=== PATIENT | male | born 1930 | race Caucasian/White ===

== ENCOUNTER → 2017-05-13 | Outpatient (CLI) | payer MEDICARE, OTHER ==
[~2017-05-13] MED LIST: Brimonidine Tart5 ML BOTHEYES; LATANOPROST2.5 ML BOTHEYES
== END | disposition home or self-care (01) ==
LOC: PLD 07:31 → LAB SHORT 07:31
DX: D22.62 Melanocytic nevi of left upper limb, including shoulder (principal)
CPT/HCPCS: 88305

== ENCOUNTER 2017-11-19 10:41 | Emergency (ER) | payer MEDICARE, OTHER ==
[~2017-11-19] VITALS: Ht 175.3 cm; Wt 77.1 kg
[2017-11-19] MEDS ORDERED: Brimonidine Tart5 ML BOTHEYES (10:56)
[2017-11-19] MEDS ORDERED: LATANOPROST2.5 ML BOTHEYES (10:57)
== END 2017-11-19 12:10 | disposition home or self-care (01) ==
LOC: ER 10:41
DX: R07.81 Pleurodynia (principal); Z88.0 Allergy status to penicillin; Z88.8 Allergy status to other drugs, medicaments and biological substances; Z88.5 Allergy status to narcotic agent; Z91.010 Allergy to peanuts; Z87.891 Personal history of nicotine dependence; W01.0XXA Fall on same level from slipping, tripping and stumbling without subsequent striking against object, initial encounter
CPT/HCPCS: 71046; 99283-25

== ENCOUNTER 2018-06-10 08:53 | Emergency (ER) | payer MEDICARE, OTHER ==
[~2018-06-10] VITALS: Ht 177.8 cm; Wt 74.8 kg
[2018-06-10] MEDS ORDERED: Hair, Skin & N1 EACH (09:56)
[2018-06-22] MEDS ORDERED: Hair, Skin & N1 EACH PO (14:24)
[2018-06-22] MEDS ORDERED: COQ1050 MG PO (14:25)
[2018-06-22] MEDS ORDERED: BREWER S YEAST PO (14:26)
[2018-06-22] MEDS ORDERED: Cardiovid Plus1 EACH PO (14:26)
== END 2018-06-10 12:16 | disposition home or self-care (01) ==
LOC: ER 08:53
DX: K40.90 Unilateral inguinal hernia, without obstruction or gangrene, not specified as recurrent (principal); Z88.0 Allergy status to penicillin; Z88.8 Allergy status to other drugs, medicaments and biological substances; Z88.5 Allergy status to narcotic agent; Z91.010 Allergy to peanuts; Z87.891 Personal history of nicotine dependence
CPT/HCPCS: 76857; 99283-25

== ENCOUNTER 2018-06-24 08:56 | Day surgery (SDC) | payer MEDICARE, OTHER ==
[~2018-06-24] VITALS: Ht 167.6 cm; Wt 76.0 kg
[~2018-06-24 08:56] MED LIST changes: +BREWER S YEAST PO; +COQ1050 MG PO; +Cardiovid Plus1 EACH PO; +Hair, Skin & N1 EACH; +Hair, Skin & N1 EACH PO
[2018-06-24] MEDS ORDERED: POTASSIUM PO (09:28)
[2018-06-24] MEDS ORDERED: MAGNESIUM PO (09:28)
--- NOTE | 2018-06-24 09:31 | NUR ---
History, Chart, Medications and Allergies reviewed before start of procedure. Patient confirms NPO status and agrees with scheduled surgery. Patient reports completing Chlorhexadine shower X2 prior to admission to hospital. Lungs clear T/O to Auscultation. Patient States Post-Procedure ride home has been arranged with his .
--- NOTE | 2018-06-24 14:44 | NUR ---
ASSISTED TO SITTING/STANDING POSITION. USES WALKER. BURPS. C/O NAUSEA. GAGGING ENROUTE TO BR. NO EMESIS. STANDS AT TOILET, VOIDS SMALL AMOUNT. BACK TO [facility], SITS AT EDGE, DANGLES LEGS.
--- NOTE | 2018-06-24 14:53 | NUR ---
assumed care of patient from Jonathan MEI, GAVE ZOFRAN AT THIS TIME 2 MG IVP FOR NAUSEA. MEDICATION HAS NOT CROSSED OVER ONTO JUL. DRESSING CDI
--- NOTE | 2018-06-24 15:11 | NUR ---
reports nausea slightly better. continues to feel not ready for family at bedside continues to sit on side of bed iniatlly had belching and dry heaves has had none for a short while.
--- NOTE | 2018-06-24 15:20 | NUR ---
gave report to Suzan fernandes. patient continues to feel "off" and a little nausea. denies pain denies being cold. wants to sit on side of bed.
--- NOTE | 2018-06-24 15:44 | NUR ---
PT CONTINUED TO C/O SOME NAUSEA AND FEELING DIZZY. SPOKE WITH DR. JETT AND RECEIVED VERBAL ORDERS FOR ADDITIONAL NAUSEA MEDICATIONS. PT GIVEN ZOFRAN 4MG IV AND CONTINUES TO SIT ON EDGE OF BED. DISCUSS WITH PT THE IMPORTANCE OF USING HIS WALKING INSTEAD OF HIS WALKING STICK WHEN HE GETS HOME AND THAT HE IS GOING TO BE SLEEPY FOR A WHILE. PT VERBALIZED UNDERSTANDING. PT DOES NOT WANT FAMILY BACK TO ROOM YET BUT IS UPDATED ON PT CURRENT CONDITION
--- NOTE | 2018-06-24 15:54 | NUR ---
PT UP AND AMB TO BATHROOM USING A WALKER AND STAND BY ASSIST.
--- NOTE | 2018-06-24 16:19 | NUR ---
PT REPORTS THAT HE STILLS FEELS LIKE "I COULD THROW UP" BUT STATES HE DOESN'T HAVE ANYTHING IN HIS STOMACH. PT GIVEN COMPAZINE 10MG SLOW IV PUSH. SITTING IN CHAIR AT THE BEDSIDE.
--- NOTE | 2018-06-24 16:28 | NUR ---
REPOR TO RENATA RN TO ASSUME CARE OF PT AT THIS TIME. PT HAS EATEN SOME APPLE CAUSE AND APPEARS TO HAVE TOLERATED IT AT THIS TIME.
--- NOTE | 2018-06-24 16:46 | NUR ---
DAY SURGERY RN | REPORT FROM MARS WOLFE. PATIENT STATES NAUSEA DECLINING. DENIES PAIN. STATES THAT HE IS "READY TO GO HOME". TOLERATING PO FLUIDS AND FOOD. AT BEDSIDE, DISCHARGE INSTRUCTIONS GIVEN. PATIENT STEADY TO AMBULATION, USES WALKER FOR ASSIST. DICUSSED USING WALKER AT HOME. RX GIVEN TO SPOUSE.
--- NOTE | 2018-06-24 17:04 | NUR ---
"DAY SURGERY | PATIENT DISCHARGED PATIENT DISCHARGED TO HOME VIA WHEELCHAIR BY RAYO VARELA RN. VSS. A/O. DENIES PAIN. STATES THAT HIS NAUSEA IS SUBSIDING AND WOULD BE BETTER MANAGED AT HOME BY EATING MORE FOOD AND RELAXING. NO ISSUES DURING COVERAGE BY THIS RN."
== END 2018-06-24 17:04 | disposition home or self-care (01) ==
LOC: ORSCMMR 08:56 → SURS 08:57 → ORSCMMR 10:30 → ORD 10:30 → ORSCMMR 17:04
PROVIDERS: Surgery
PROC: 0YU60JZ Supplement Left Inguinal Region with Synthetic Substitute, Open Approach (ICD-10-PCS; principal; 2018-06-24 11:30)
DX: K40.90 Unilateral inguinal hernia, without obstruction or gangrene, not specified as recurrent (principal)
CPT/HCPCS: 88305; C1781; J0690; J0780; J1100; J1885; J2405; J3010; J7120

== ENCOUNTER → 2019-09-22 | Outpatient (CLI) | payer MEDICARE, OTHER ==
[~2019-09-22] MED LIST changes: +MAGNESIUM PO; +POTASSIUM PO; +Protonix40 MG PO
== END | disposition home or self-care (01) ==
LOC: LAB SHORT 19:19 → LAB 19:19
DX: R30.0 Dysuria (principal)
CPT/HCPCS: 87086

== ENCOUNTER 2020-02-12 10:44 | Emergency (ER) | payer MEDICARE, OTHER ==
[~2020-02-12] VITALS: Ht 175.3 cm; Wt 72.6 kg
[2020-02-12] MEDS ORDERED: FLOMAX0.4 MG PO (16:09)
[2020-02-12] MEDS ORDERED: GABA100 PO (16:10)
[2020-02-12] MEDS ORDERED: MELATONIN5 M1 PO (16:11)
== END 2020-02-12 16:25 | disposition home or self-care (01) ==
LOC: ER 10:44
DX: K59.00 Constipation, unspecified (principal); Z88.0 Allergy status to penicillin; Z88.8 Allergy status to other drugs, medicaments and biological substances; Z88.5 Allergy status to narcotic agent; Z91.010 Allergy to peanuts; Z79.899 Other long term (current) drug therapy; Z87.891 Personal history of nicotine dependence
CPT/HCPCS: 74018; 99283-25

== ENCOUNTER 2020-03-10 09:57 | Emergency (ER) | payer MEDICARE, OTHER ==
[~2020-03-10] VITALS: Ht 175.3 cm; Wt 72.6 kg
[~2020-03-10 09:57] MED LIST changes: +FLOMAX0.4 MG PO; +GABA100 PO; +MELATONIN5 M1 PO
[2020-03-10 10:44] LABS: BASOPHILS ABSOLUTE AUTO 0.03 K/mm3 (0.00-0.23); BASOPHILS PERCENT AUTO 1 % (0-2); EOSINOPHILS ABSOLUTE AUTO 0.04 K/mm3 (0.00-0.68); EOSINOPHILS PERCENT AUTO 1 % (0-6); Hematocrit 36.5 % (37.0-53.0); Hemoglobin 11.5 g/dL (13.5-17.5); IMMATURE GRAN ABSOLUTE AUTO 0.02 K/mm3 (0.00-0.10); IMMATURE GRAN PERCENT AUTO 0 % (0-1); LYMPHOCYTES ABSOLUTE AUTO 0.94 K/mm3 (0.84-5.20); LYMPHOCYTES PERCENT AUTO 18 % (21-46); MONOCYTES ABSOLUTE AUTO 0.31 K/mm3 (0.16-1.47); MONOCYTES PERCENT AUTO 6 % (4-13); Mean Corpuscular HGB Conc 31.5 g/dL (31.5-36.5); Mean Corpuscular Volume 92 fL (80-100); Mean Platelet Volume 10.1 fL (9.1-12.4); NEUTROPHILS PERCENT AUTO 74 % (41-73); Platelet Count 250 K/mm3 (150-400); RDW Coefficient Variation 14.5 % (11.7-14.2); RDW Standard Deviation 48.8 fL (35.1-46.3); Red Blood Cell Count 3.97 M/mm3 (4.30-5.90); White Blood Cell Count 5.24 K/mm3 (4.00-11.30)
[2020-03-10 11:02] LABS: Alanine Aminotransfer (ALT/SGP 17 U/L (12-78); Albumin, Blood 3.8 g/dL (3.4-5.0); Albumin/Globulin Ratio 1.1 (0.8-1.8); Alk Phos 73 U/L (50-136); Anion Gap 4 mmol/L (6-16); Aspartate Aminotrans (AST/SGOT 15 U/L (12-37); Bilirubin, Total 0.4 mg/dL (0.1-1.0); Blood Urea Nitrogen 11 mg/dL (8-24); Bun/Creatinine Ratio 15.7 (12.0-20.0); CO2, Blood 32 mmol/L (21-32); Calcium, Blood 9.2 mg/dL (8.5-10.1); Chloride, Blood 106 mmol/L (98-108); Globulin, Blood 3.5 g/dL (2.2-4.0); Glomerular Filtration Rate >60 (60-); Glucose, Blood 89 mg/dL (70-99); Potassium, Blood 4.3 mmol/L (3.5-5.5); Sodium, Blood 142 mmol/L (136-145); Total Protein, Blood 7.3 g/dL (6.4-8.2)
--- NOTE | 2020-03-10 14:19 | NUR ---
PT TRANSFERED TO [facility] VIA GURNY FROM ER. History, Chart, Medications and Allergies reviewed before start of procedure. Lungs clear T/O to Auscultation. Patient confirms NPO status and agrees with scheduled surgery. Patient confirms NPO status and agrees with scheduled surgery. Pre-Op teaching done. Pt verbalizes understanding.
--- NOTE | 2020-03-10 14:38 | NUR ---
03/10/20 1438 KIMI GARLAND History, Chart, Medications and Allergies reviewed before start of procedure.F 3-LEAD EKG REVIEWED WITH PHYSICIAN PRIOR TO START OF PROCEDURE. O2 VIA N/C INTACT THROUGHOUT SEDATION/PROCEDURE. MONITOR INTACT WITH CONTINUOUS PULSE OXIMETRY AND INTERMITTENT BP. PATIENT DETERMINED TO BE ASA APPROPRIATE FOR PROPOFOL SEDATION PRIOR TO START OF PROCEDURE BY AND DR. MARLOW.
--- NOTE | 2020-03-10 15:44 | NUR ---
PT MEETS CRITERIA FOR D/C. Patient up to Ambulate independently. Gait steady. Discharge instructions reviewed with patient. Patient verbalizes understanding. Copy given to patient to take home. Discharged via wheelchair to private car for ride home.
== END 2020-03-10 14:10 | disposition other institution (70) ==
LOC: ER 09:57
PROVIDERS: Physician Assistant
DX: T18.108A Unspecified foreign body in esophagus causing other injury, initial encounter (principal); Z20.828 Contact with and (suspected) exposure to other viral communicable diseases; Z88.5 Allergy status to narcotic agent; Z88.0 Allergy status to penicillin; Z88.8 Allergy status to other drugs, medicaments and biological substances; Z91.010 Allergy to peanuts; Z79.899 Other long term (current) drug therapy; Z87.891 Personal history of nicotine dependence
CPT/HCPCS: 36415; 71045; 80053; 83690; 85025; 88305; 99284-25; J2405; J2704; J7120; U0004

== ENCOUNTER 2020-04-05 13:31 | Day surgery (SDC) | payer MEDICARE, OTHER ==
[~2020-04-05] VITALS: Ht 175.3 cm; Wt 78.3 kg
[2020-04-05] MEDS ORDERED: GABA300 (13:49)
[2020-04-05] MEDS ORDERED: TRAZ50 (13:50)
== END 2020-04-05 15:24 | disposition home or self-care (01) ==
LOC: ORSCSDS 13:31
DX: R13.10 Dysphagia, unspecified (principal); K22.2 Esophageal obstruction; K22.70 Barrett's esophagus without dysplasia; K44.9 Diaphragmatic hernia without obstruction or gangrene; N40.0 Benign prostatic hyperplasia without lower urinary tract symptoms
CPT/HCPCS: 88305; C1726; J2704; J7120

== ENCOUNTER 2020-09-24 16:13 | Emergency (ER) | payer MEDICARE, OTHER ==
[~2020-09-24] VITALS: Ht 170.2 cm; Wt 68.0 kg
[~2020-09-24 16:13] MED LIST changes: +GABA300; +TRAZ50
[2020-09-24 16:58] LABS: BASOPHILS ABSOLUTE AUTO 0.02 K/mm3 (0.00-0.23); BASOPHILS PERCENT AUTO 0 % (0-2); EOSINOPHILS ABSOLUTE AUTO 0.07 K/mm3 (0.00-0.68); EOSINOPHILS PERCENT AUTO 1 % (0-6); Hematocrit 38.6 % (37.0-53.0); IMMATURE GRAN ABSOLUTE AUTO 0.01 K/mm3 (0.00-0.10); IMMATURE GRAN PERCENT AUTO 0 % (0-1); LYMPHOCYTES ABSOLUTE AUTO 1.23 K/mm3 (0.84-5.20); LYMPHOCYTES PERCENT AUTO 23 % (21-46); MONOCYTES ABSOLUTE AUTO 0.37 K/mm3 (0.16-1.47); MONOCYTES PERCENT AUTO 7 % (4-13); Mean Corpuscular HGB 30.2 pg (26.0-34.0); Mean Corpuscular HGB Conc 33.7 g/dL (31.5-36.5); Mean Corpuscular Volume 90 fL (80-100); Mean Platelet Volume 10.7 fL (9.1-12.4); NEUTROPHILS ABSOLUTE AUTO 3.75 K/mm3 (1.96-9.15); NEUTROPHILS PERCENT AUTO 69 % (41-73); Platelet Count 205 K/mm3 (150-400); RDW Coefficient Variation 13.1 % (11.7-14.2); RDW Standard Deviation 43.4 fL (35.1-46.3); Red Blood Cell Count 4.31 M/mm3 (4.30-5.90); White Blood Cell Count 5.45 K/mm3 (4.00-11.30)
[2020-09-24 17:16] LABS: Alanine Aminotransfer (ALT/SGP 21 U/L (12-78); Albumin, Blood 3.7 g/dL (3.4-5.0); Albumin/Globulin Ratio 1.1 (0.8-1.8); Alk Phos 51 U/L (50-136); Anion Gap 4 mmol/L (6-16); Aspartate Aminotrans (AST/SGOT 14 U/L (12-37); Bilirubin, Total 0.4 mg/dL (0.1-1.0); Blood Urea Nitrogen 10 mg/dL (8-24); CO2, Blood 29 mmol/L (21-32); Calcium, Blood 8.9 mg/dL (8.5-10.1); Chloride, Blood 104 mmol/L (98-108); Creatinine, Blood 0.71 mg/dL (0.60-1.20); Globulin, Blood 3.5 g/dL (2.2-4.0); Glomerular Filtration Rate >60 (60-); Glucose, Blood 88 mg/dL (70-99); Potassium, Blood 4.1 mmol/L (3.5-5.5); Sodium, Blood 137 mmol/L (136-145); Total Protein, Blood 7.2 g/dL (6.4-8.2)
== END 2020-09-24 19:30 | disposition home or self-care (01) ==
LOC: ER 16:13
PROVIDERS: Physician Assistant
DX: R10.9 Unspecified abdominal pain (principal); Z88.0 Allergy status to penicillin; Z88.8 Allergy status to other drugs, medicaments and biological substances; Z91.010 Allergy to peanuts; Z79.899 Other long term (current) drug therapy; Z87.891 Personal history of nicotine dependence
CPT/HCPCS: 36415; 74177; 80053; 85025; 99284-25; Q9967